=== PATIENT | male | born 1990 | race Caucasian/White ===

== ENCOUNTER 2018-10-05 18:47 | Emergency (ER) | payer SELFPAY ==
[~2018-10-05] VITALS: Ht 193 cm; Wt 104.3 kg
[2018-10-05] MEDS ORDERED: TRIM/SULFAMETH 160/800 (SEPTRA DS) TAB PO ONE (19:15)
--- NOTE | 2018-10-05 19:18 | ED Integumentary General ---
General Chief Complaint: Skin/Wound Problems Stated Complaint: PT THINKS HE MAY HAVE STAPH Nursing Triage Note: Pt arrived by private vehicle with chief complaint of possible staph. Pt stated that he had a laceration on his right pinky finger (5th finger) from one week ago. He kept if bandaged for the first three days, then on day four he decided to not bandage it and went to lay concrete. Pt stated he was worried that it might have got in it. Pt decided to clean it out today with hydrogen peroxide and open it up. 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 He is a tobacco smoker. He presents with concern for increasing redness and swelling and discomfort to his right small finger and ju st proximal to it in association with a laceration which he sustained about 5 days ago with a fillet knife. Patient opted to treat the laceration himself without presenting to a care provider and had been using peroxide and the wound had been healing appropriately until the last 1-2 days when increasing redness and swelling and discomfort were noticed. He denies any fevers, nausea or vomiting or other systemic symptoms. Pain is controlled. Tetanus is up-to-date. Discussed plan of care with the patient and my recommendation that we obtain at minimum plain films of the hand to rule out bony injury but the patient states that he just wants an antibiotic and does not want any other testing or treatment at this time which I let him know I would be glad to provide. He understands that there is a possibility for missed fracture and other missed diagnosis with no further testing at this time, though suspicion for this is somewhat low given good movement and strength in the patient's digit at all joints. Allergies and Home Medications Allergies Coded Allergies: No Known Drug Allergies (Unverified , 10/05/18) Patient Home Medication List Home Medication List Reviewed: Yes Review of Systems Review of Systems Constitutional: see HPI All Other Systems Reviewed Negative Unless Noted: Yes (Negative excepted noted.) Past Xjmsgwr-Ubfpcp-Cyemqs Hx Past Med/Social Hx: Reviewed Nursing Past Med/Soc Hx Patient Social History Alcohol Use: Regular Use Number of Drinks Today: 1 Alcohol Beverage of Choice: Whiskey Recreational Drug Use: No Smoking Status: Current Everyday Smoker Type Used: Cigarettes 2nd Hand Smoke Exposure: Yes Recent Foreign Travel: No Contact w/Someone Who Travel: No Recent Infectious Disease Expo: No Physical Abuse: No Sexual Abuse: No Mistreated: No Fear: No Family Medical History Reviewed Nursing Family Hx Physical Exam Vital Signs Vital Signs - First Documented 10/05/18 18:56 Temp 97.5 Pulse 92 Resp 16 B/P (MAP) 158/92 (114) Pulse Ox 97 O2 Delivery Room Air Capillary Refill : Less Than 3 Seconds General Appearance: no apparent distress Comments This is a younger male appearing nontoxic and in no acute distress. Head is normocephalic and atraumatic. Neck is supple and nontender. Oropharynx is moist. Lungs are clear to auscultation at all stations. There is normal S1 and S2 without rubs or gallops and capillary refill is appropriate, less than 2 seconds globally. Abdomen is soft, nontender and nondistended. Skin is warm and dry without cyanosis, clubbing or edema. Psychiatrically, the patient demonstrated appropriate mood and affect and is alert. From a musculoskeletal standpoint, evaluation of the right upper extremity isn't remarkable for a healing 1 cm curved laceration to the radial aspect of the dorsal PIP joint of the right small finger. There is mild erythema and swelling to the dorsal aspect of this joint which tracks back approximately 2 the dorsal aspect of the hand. There is no fusiform swelling/sausage digit and the patient is able to range all joints of the affected digit and hand without discomfort. He has 5 out of 5 strength at all joints of the right small finger and wrist of the right hand. The right upper extremity is neurovascularly intact. There is minimal lymphangitic streaking tracking proximally to around the level of the wrist on the right. Progress/Results/Core Measures Results/Orders Vital Signs/I&O 10/05/18 18:56 Temp 97.5 Pulse 92 Resp 16 B/P (MAP) 158/92 (114) Pulse Ox 97 O2 Delivery Room Air Blood Pressure Mean: 114 Progress Progress Note : Time: 19:19 Progress Note Clinical examination suspicious suspicious for mild wound infection to the right small finger in association with a laceration sustained there nearly a week ago. Examination is not suggestive of flexor tenosynovitis or other severe acute process but the patient will certainly benefit from an biotic. As noted, he does not want any further testing or treatment but would simply like an antibiotic to be prescribed. We will give a dose of Bactrim here and prescribed same and patient is counseled to use ibuprofen for discomfort and to return if symptoms worsen. He understands and agrees with the plan of care. All questions are answered. We will proceed with discharge home at this time. Departure Impression Primary Impression: Cellulitis of finger of right hand Disposition: HOME, SELF-CARE Condition: Improved Departure-Patient Inst. Decision time for Depature: 19:21 Referrals: NO,LOCAL PHYSICIAN (PCP/Family) Primary Care Physician Patient Instructions: Cellulitis (Skin Infection), Adult (DC) Add. Discharge Instructions: Take the antibiotic as prescribed until the prescription is completely gone. You may use ibuprofen, up to 800 mg 3 times a day as needed for pain. Return immediately if symptoms worsen or if other new symptoms of concern develop. Scripts Sulfamethoxazole/Trimethoprim (Bactrim Ds Tablet) 1 Each Tablet 1 EACH PO BID for 10 Days, #20 TAB Prov: DONIS LEAL MD 10/05/18 DONIS LEAL MD Oct 05, 2018 19:18
[2018-10-05] MEDS ORDERED: SULF1TAB35 PO (19:22)
[2018-10-05 19:28] VITALS: BP 135/81
== END 2018-10-05 19:28 | disposition home or self-care (01) ==
LOC: ER FS 18:49
DX: L03.011 Cellulitis of right finger (principal); F17.210 Nicotine dependence, cigarettes, uncomplicated
CPT/HCPCS: 99283

== ENCOUNTER 2019-04-06 19:50 | Emergency (ER) | payer SELFPAY ==
[~2019-04-06] VITALS: Ht 193 cm; Wt 109.9 kg
[~2019-04-06 19:50] MED LIST: SULF1TAB35 PO
--- NOTE | 2019-04-06 20:15 | NUR ---
PT ASSISTED OUT OF THE WHEELCHAIR AND INTO THE BED. PT WAS ABLE TO ASSIST WITH TRANSFER. PT UNDRESSED AND WAS HELPED INTO A GOWN. PT WAS ABLE TO ANSWER QUESTIONS AND WAS A&O X4.
[2019-04-06] MEDS ORDERED: morphine INJ 10 MG/ML 1ML (SYR OR VIAL) IVP STA (20:24)
[2019-04-06] MEDS ORDERED: HOLD METFORMIN - RECEIVED CONTRAST 20 ML VIAL IV SCH (20:30)
[2019-04-06] MEDS ORDERED: IOHEXOL 350 MG/ML 100 ML (OMNIPAQUE 350) VIAL IV ONE (20:30)
[2019-04-06] MEDS ORDERED: NS 100 ML (IVPB) BAG IV ONE (20:30)
[2019-04-06] MEDS ORDERED: KETOROLAC 30 MG/ML VIAL IVP ONE (20:30)
--- NOTE | 2019-04-06 20:33 | NUR ---
PT. ALSO STATED IF HE HAS A WRECK GOING TO [place] THIS [facility]OS[facility]ITAL WILL PAY.
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
[2019-04-06 20:42] VITALS: BP 149/101
--- NOTE | 2019-04-06 20:43 | NUR ---
PT SEEN WALKING OUT OF ROOM ACCOMPANIED BY A FEMALE THAT WAS IN THE ROOM WITH THE PT AT ARRIVAL. STAFF ENCOURAGED PT TO REMAIN IN ROOM TO RECEIVE CARE AND PT CONTINUED TO WALK OUT OF THE ED. PT DID NOT APPEAR TO HAVE ANY DIFFICULTY AMBULATING WHEN LEAVING THE ED.
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
== END 2019-04-06 20:40 | disposition left against medical advice (07) ==
LOC: EDUNIT# 19:50 → ER FS 19:52
DX: R10.31 Right lower quadrant pain (principal); M25.551 Pain in right hip; Z77.22 Contact with and (suspected) exposure to environmental tobacco smoke (acute) (chronic); Z98.890 Other specified postprocedural states; Z87.828 Personal history of other (healed) physical injury and trauma; W01.0XXA Fall on same level from slipping, tripping and stumbling without subsequent striking against object, initial encounter
CPT/HCPCS: 99282

== ENCOUNTER 2019-09-03 22:06 | Emergency (ER) | payer OTHER ==
[~2019-09-03] VITALS: Ht 193 cm; Wt 113.9 kg
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
[2019-09-03 22:15] VITALS: BP 127/66
== END 2019-09-03 22:15 | disposition home or self-care (01) ==
LOC: EDUNIT# 22:06 → ER FS 22:07
DX: Z04.1 Encounter for examination and observation following transport accident (principal)
CPT/HCPCS: 99281